=== PATIENT | male | born 1980 | race American Indian/Alaskan Native ===

== ENCOUNTER 2016-07-30 08:11 | Emergency (ER) | payer SELFPAY ==
--- NOTE | 2016-07-30 09:17 | Emergency Department Report ---
Stated Complaint: STOMACH VIRUS Time Seen by Provider: 07/30/16 09:16 - HPI History of Present Illness: Patient here report nausea vomiting and diarrhea since Wednesday. He said he has no nausea vomiting or diarrhea today. He said that he was exposed to cleaning agent at work and he is also having light sensitivity and migraine headache. Denies any nausea vomiting or diarrhea today. Denies any urinary burning frequency or urgency. Denies any abdominal pain. Denies Chest pain or shortness of breath. - ROS Review of Systems: all Systems are negative unless stated in HPI above. - Exam Vital Signs: Vital Signs 07/30/16 09:09 Temperature 98.2 F Pulse Rate 65 Respiratory 18 Rate Blood Pressure 116/74 O2 Sat by Pulse 97 Oximetry Physical Exam: General: This is a 36-year-old male well-nourished well-developed in no acute distress. Abdomen: Non-Tender to palpate in all quadrants no guarding or rebound tenderness. Normal bowel sounds in all quadrants and no CVA tenderness Lungs:Clear to Auscultated bilaterally. Rhonchi wheezes or rales. Normal work of breathing MSE screening note: Focused history and physical exam performed. Due to findings the following was ordered:see mdm ED Medical Decision Making - Medical Decision Making Medical decision making: Patient seen by provider in triage area. Appropriate protocol activated and patient to main ED to be seen by physician. ED Disposition for MSE Condition: Stable
[2016-07-30 09:18] VITALS: BP 116/74
[2016-07-30 09:42] LABS: Basophils % (Auto) 0.5 % (0.0-1.8); Eosinophils % (Auto) 0.5 % (0.0-4.3); Hematocrit 40.3 % (35.5-45.6); Hemoglobin 13.1 gm/dl (11.8-15.2); Mean Corpuscular HGB Conc 33 % (32-34); Mean Corpuscular Hemoglobin 28 pg (28-32); Mean Corpuscular Volume 85 fl (84-94); Platelet Count 143 K/mm3 (140-440); Red Blood Count 4.73 M/mm3 (3.65-5.03); Red Cell Distribution Width 13.1 % (13.2-15.2); White Blood Count 5.1 K/mm3 (4.5-11.0)
[2016-07-30 09:59] LABS: Alanine Aminotransferase 13 units/L (7-56); Albumin 4.5 g/dL (3.9-5); Albumin/Globulin Ratio 1.7 %; Alkaline Phosphatase 54 units/L (35-129); Amylase 52 units/L (27-131); Bilirubin,Total 0.8 mg/dL (0.1-1.2); Blood Urea Nitrogen 10 mg/dL (9-20); Calcium 9.2 mg/dL (8.4-10.2); Carbon Dioxide 30 mmol/L (22-30); Glucose 94 mg/dL (75-100); Lipase 14 units/L (13-60); Total Protein 7.1 g/dL (6.3-8.2)
[2016-07-30 10:00] LABS: Chloride 101.6 mmol/L (98-107); Potassium 4.3 mmol/L (3.6-5.0); Sodium 141 mmol/L (137-145)
[2016-07-30 10:09] LABS: Anion Gap 14 mmol/L; Bilirubin,Direct < 0.2 mg/dL (0-0.2); Bilirubin,Indirect 0.6 mg/dL
[2016-07-30 13:34] LABS: Bilirubin,Urine NEG (Negative); Blood,Urine NEG (Negative); Ketones,Urine NEG (Negative); Leukocyte Esterase,Urine NEG (Negative); Nitrite,Urine NEG (Negative); Protein,Urine <15 mg/dL mg/dL (Negative); Urobilinogen,Urine < 2.0 mg/dL (<2.0); WBC,Urine < 1.0 /HPF (0.0-6.0)
--- NOTE | 2016-07-30 13:43 | Emergency Department Report ---
HPI - General Chief Complaint: Nausea/Vomiting/Diarrhea Time Seen by Provider: 07/30/16 09:16 - HPI HPI: Room 38 The patient is a 36-year-old male presenting with a chief complaint of nausea vomiting diarrhea. The patient states 3 days ago he developed nausea vomiting and diarrhea and headache with his vomiting. Patient states the symptoms had improved so he went back to work yesterday. The patient states at work he had episodes of nausea and vomiting and was sent home. Patient states he felt better today and was going back to work and his boss instructed them to come to the hospital for evaluation. Patient is currently asymptomatic. Patient denies any recent antibiotic use. Patient denies any history of fever. She states his is sick with the same symptoms. Location: Gastrointestinal system, see above Duration: [see above] Quality: Nausea Severity: Moderate Modifying factors: [see above] Context: [see above] Mode of transportation: Unknown ED Past Medical Hx - Past Medical History Previous Medical History?: No - Surgical History Past Surgical History?: Yes Additional Surgical History: right leg surgery - Family History Family history: no significant - Social History Smoking Status: Never Smoker Substance Use Type: None - Medications Home Medications: Home Medications Medication Instructions Recorded Confirmed Last Taken Type Acetaminophen/Codeine [Tylenol #3] 1 tab PO Q6H PRN #20 tab 03/06/15 Unknown Rx Ibuprofen [Motrin 800 MG tab] 800 mg PO Q8HR PRN #30 tablet 03/06/15 Unknown Rx Sulfamethoxazole/Trimethoprim 1 each PO BID #20 tablet 03/06/15 Unknown Rx [Bactrim DS TAB] Ibuprofen [Motrin] 600 mg PO Q8H PRN #40 tablet 05/07/15 Unknown Rx traMADol [Ultram] 50 mg PO Q6HR PRN #20 tablet 05/07/15 Unknown Rx Diphenoxylate/Atropine [Lomotil] 1 tab PO QID PRN #10 tablet 07/30/16 Unknown Rx Promethazine [Phenergan TAB] 25 mg PO Q6HR PRN #20 tab 07/30/16 Unknown Rx Promethazine [Phenergan] 25 mg DC Q6HR PRN #5 supp.rect 07/30/16 Unknown Rx ED Review of Systems ROS: Stated complaint: STOMACH VIRUS Other details as noted in HPI Comment: All other systems reviewed and negative Constitutional: fever. denies: chills Eyes: denies: eye pain, eye discharge, vision change ENT: denies: ear pain, throat pain Respiratory: denies: cough, shortness of breath, wheezing Cardiovascular: denies: chest pain, palpitations Endocrine: no symptoms reported Gastrointestinal: nausea, vomiting, diarrhea. denies: abdominal pain Genitourinary: denies: urgency, dysuria Musculoskeletal: denies: back pain, joint swelling, arthralgia Skin: denies: rash, lesions Neurological: headache. denies: weakness, paresthesias Psychiatric: denies: anxiety, depression Hematological/Lymphatic: denies: easy bleeding, easy bruising Physical Exam - Physical Exam Vital Signs: Vital Signs 07/30/16 07/30/16 09:09 13:14 Temperature 98.2 F Pulse Rate 65 Respiratory 18 20 Rate Blood Pressure 116/74 O2 Sat by Pulse 97 Oximetry Physical Exam: GENERAL: The patient is well-developed well-nourished male lying on stretcher not appearing to be in acute distress. [] HEENT: Normocephalic. Atraumatic. Extraocular motions are intact. Patient has moist mucous membranes. NECK: Supple. No meningitic signs are noted. Trachea midline. No nuchal rigidity CHEST/LUNGS: Clear to auscultation. There is no respiratory distress noted. HEART/CARDIOVASCULAR: Regular. There is no tachycardia. There is no gallop rub or murmur. ABDOMEN: Abdomen is soft, nontender. Patient has normal bowel sounds. There is no abdominal distention. SKIN: There is no rash. There is no edema. There is no diaphoresis. NEURO: The patient is awake, alert, and oriented. The patient is cooperative. The patient has normal speech and gait. MUSCULOSKELETAL: There is no evidence of acute injury. ED Course Vital Signs 07/30/16 07/30/16 09:09 13:14 Temperature 98.2 F Pulse Rate 65 Respiratory 18 20 Rate Blood Pressure 116/74 O2 Sat by Pulse 97 Oximetry ED Medical Decision Making - Lab Data Result diagrams: 07/30/16 09:34 07/30/16 09:34 Laboratory Tests 07/30/16 07/30/16 07/30/16 09:34 09:34 13:21 WBC 5.1 RBC 4.73 Hgb 13.1 Hct 40.3 MCV 85 MCH 28 MCHC 33 RDW 13.1 L Plt Count 143 Lymph % (Auto) 35.1 H Wirt % (Auto) 8.6 H Eos % (Auto) 0.5 Baso % (Auto) 0.5 Lymph # 1.8 Wirt # 0.4 Eos # 0.0 Baso # 0.0 Seg Neutrophils % 55.3 Seg Neutrophils # 2.8 Sodium 141 Potassium 4.3 Chloride 101.6 Carbon Dioxide 30 Anion Gap 14 BUN 10 Creatinine 0.8 Estimated GFR > 60 BUN/Creatinine Ratio 12.50 Glucose 94 Calcium 9.2 Total Bilirubin 0.8 Direct Bilirubin < 0.2 Indirect Bilirubin 0.6 AST 19 ALT 13 Alkaline Phosphatase 54 Total Protein 7.1 Albumin 4.5 Albumin/Globulin Ratio 1.7 Amylase 52 Lipase 14 Urine Color Yellow Urine Turbidity Clear Urine pH 7.0 Ur Specific [place] 1.012 Urine Protein <15 mg/dl Urine Glucose (UA) Neg Urine Ketones Neg Urine Blood Neg Urine Nitrite Neg Urine Bilirubin Neg Urine Urobilinogen < 2.0 Ur Leukocyte Esterase Neg Urine WBC (Auto) < 1.0 Urine RBC (Auto) 3.0 U Epithel Cells (Auto) 1.0 - Differential Diagnosis gastroenteritis Critical care attestation.: If time is entered above; I have spent that time in minutes in the direct care of this critically ill patient, excluding procedure time. ED Disposition Clinical Impression: Acute gastroenteritis Disposition: DISCHARGED TO HOME OR SELFCARE Is pt being admited?: No Does the pt Need Aspirin: No Condition: Stable Instructions: Gastroenteritis (ED) Additional Instructions: Return to the emergency department immediately should you develop worsening symptoms, fever, inability to tolerate food or liquid or any other concerns. Prescriptions: Diphenoxylate/Atropine [Lomotil] 1 tab PO QID PRN #10 tablet PRN Reason: Diarrhea Promethazine [Phenergan TAB] 25 mg PO Q6HR PRN #20 tab PRN Reason: Nausea Promethazine [Phenergan] 25 mg DC Q6HR PRN #5 supp.rect PRN Reason: Vomiting Referrals: PRIMARY CARE, [Primary Care Provider] - 3-5 Days JULIETTE LAZCANO MD [Staff Physician] - 3-5 Days (Dr. Lazcano is a primary physician. Please follow up with him to be established as a patient if you do not have a primary physician.) CAITLYN JO MD [Staff Physician] - 3-5 Days (Dr. Jo is a cotton inspector. Please follow up with him if your symptoms persist) Time of Disposition: 13:48
== END 2016-07-30 14:04 | disposition home or self-care (01) ==
LOC: ED 08:11
DX: K52.9 Noninfective gastroenteritis and colitis, unspecified (principal)
CPT/HCPCS: 36415; 80048; 80074; 81001; 82150; 83690; 85025; 99283

== ENCOUNTER 2016-11-18 09:28 | Emergency (ER) | payer SELFPAY ==
--- NOTE | 2016-11-18 10:20 | XRay Report ---
LEFT KNEE RADIOGRAPHS INDICATION: Left knee injury, pain. Fell last night. COMPARISON: 05/07/2015. FINDINGS: AP, lateral and oblique left knee radiographs again demonstrate normal bony articulation and appearance. Knee soft tissues and a small suprapatellar effusion though slightly more prominent. CONCLUSION: No acute bony abnormality with other findings, as above. Please correlate. Thank you for the opportunity to participate in this patient's care.
[2016-11-18] MEDS ORDERED: NORCO 5/325 PO ONE (11:07)
[2016-11-18] MEDS ORDERED: MOTRIN PO ONE (11:07)
--- NOTE | 2016-11-18 11:18 | Emergency Department Report ---
ED Extremity Problem HPI - General Chief complaint: Extremity Injury, Lower Stated complaint: KNEE PAIN Time Seen by Provider: 11/18/16 10:46 Source: patient Mode of arrival: Ambulatory Limitations: No Limitations - History of Present Illness Initial comments: PT states last night he injured his knee. PT states he was walking down the steps at his mom's house and he missed a step. PT states his body fell to the L and his knee went to the R. PT states he took Motrin last night at midnight and he tried wearing an OTC brace but everytime he takes a step, he feels like his knee is popping out of place. MD Complaint: joint paint -: Sudden Location: left, knee Severity scale (0 -10): 10 (if knee is moving) Quality: sharp Consistency: constant Improves with: rest Worsens with: weight bearing, walking, palpation Associated Symptoms: denies other symptoms (denies other injuries ). denies: chest pain, shortness of breath - Related Data Previous Rx's Medication Instructions Recorded Last Taken Type Acetaminophen/Codeine [Tylenol #3] 1 tab PO Q6H PRN #12 tab 11/18/16 Unknown Rx Ibuprofen [Motrin] 600 mg PO Q8H PRN #15 tablet 11/18/16 Unknown Rx Allergies Allergy/AdvReac Type Severity Reaction Status Date / Time No Known Allergies Allergy Verified 11/18/16 09:35 ED Review of Systems ROS: Stated complaint: KNEE PAIN Other details as noted in HPI Comment: All other systems reviewed and negative Respiratory: denies: shortness of breath Cardiovascular: denies: chest pain Gastrointestinal: denies: abdominal pain Musculoskeletal: as per HPI Skin: other (denies wounds ) Neurological: denies: headache, weakness, confusion ED Past Medical Hx - Past Medical History Previous Medical History?: No - Surgical History Additional Surgical History: right leg surgery - Social History Smoking Status: Never Smoker Substance Use Type: None - Medications Home Medications: Home Medications Medication Instructions Recorded Confirmed Last Taken Type Acetaminophen/Codeine [Tylenol #3] 1 tab PO Q6H PRN #12 tab 11/18/16 Unknown Rx Ibuprofen [Motrin] 600 mg PO Q8H PRN #15 tablet 11/18/16 Unknown Rx ED Physical Exam - General Limitations: No Limitations General appearance: alert, in no apparent distress - Head Head exam: Present: atraumatic, normocephalic, normal inspection - Eye Eye exam: Present: normal appearance, EOMI. Absent: conjunctival injection - ENT ENT exam: Present: normal exam - Neck Neck exam: Present: normal inspection, full ROM. Absent: tenderness - Respiratory Respiratory exam: Present: normal lung sounds bilaterally. Absent: respiratory distress, wheezes - Cardiovascular Cardiovascular Exam: Present: regular rate, normal rhythm, normal heart sounds - GI/Abdominal GI/Abdominal exam: Present: soft. Absent: tenderness - Extremities Exam Extremities exam: Present: normal inspection, tenderness. Absent: full ROM, pedal edema, calf tenderness - Expanded Lower Extremity Exam Left Upper Leg exam: Present: normal inspection Knee exam: Present: normal inspection, tenderness (to medial joint line ), full knee extension. Absent: full ROM (decreased flexion ), abrasion, laceration, ecchymosis, deformity, crepidus, dislocation, erythema Lower Leg exam: Present: normal inspection. Absent: tenderness Gait: Positive: antalgic - Back Exam Back exam: Present: normal inspection, full ROM - Neurological Exam Neurological exam: Present: alert, oriented X3 - Psychiatric Psychiatric exam: Present: normal affect, normal mood - Skin Skin exam: Present: warm, dry, intact, other (with tattoos ) ED Course Vital Signs 11/18/16 11/18/16 09:29 11:21 Temperature 98.2 F 98.2 F Pulse Rate 77 70 Respiratory 17 16 Rate Blood Pressure 132/76 Blood Pressure 110/69 [Left] O2 Sat by Pulse 98 97 Oximetry - Reevaluation(s) Reevaluation #1: 11/18/16 11:21 PT aware of dx and plan of care. Reevaluation #2: 11/18/16 11:47 PT placed in knee immobilizer by RN. PT NVI. - Pulse Oximetry Interpretation Digit-Finger Initial Pulse Oximetry Readin Actions Taken: none ED Medical Decision Making - Radiology Data Radiology results: report reviewed XR L knee- Suprapatellar effusion, no fx - Differential Diagnosis fracture, strain, ligament injury Critical Care Time: No Critical care attestation.: If time is entered above; I have spent that time in minutes in the direct care of this critically ill patient, excluding procedure time. ED Disposition Clinical Impression: Knee effusion, left Left knee injury Qualifiers: Encounter type: initial encounter Qualified Code(s): S89.92XA - Unspecified injury of left lower leg, initial encounter Disposition: DISCHARGED TO HOME OR SELFCARE Is pt being admited?: No Does the pt Need Aspirin: No Condition: Stable Instructions: Knee Sprain (ED), Knee Effusion (ED), Knee Pain (ED), RICE Therapy (ED), Knee Immobilizer (ED) Additional Instructions: No driving or ETOH after Tylenol #3 Prescriptions: Acetaminophen/Codeine [Tylenol #3] 1 tab PO Q6H PRN #12 tab PRN Reason: Pain , Severe (7-10) Ibuprofen [Motrin] 600 mg PO Q8H PRN #15 tablet PRN Reason: Pain Referrals: PRIMARY CAREMD [Primary Care Provider] - 3-5 Days SANDRITA HUTSON MD, PHD [Staff Physician] - 3-5 Days CLARY SILVEIRA MD [Staff Physician] - 3-5 Days Forms: Work/School Release Form(ED) Time of Disposition: 11:24
[2016-11-18 11:23] VITALS: BP 110/69
== END 2016-11-18 12:01 | disposition home or self-care (01) ==
LOC: ED 09:28
DX: S89.92XA Unspecified injury of left lower leg, initial encounter (principal); M25.462 Effusion, left knee; W10.9XXA Fall (on) (from) unspecified stairs and steps, initial encounter; Y93.89 Activity, other specified; Y92.89 Other specified places as the place of occurrence of the external cause; Y99.8 Other external cause status

== ENCOUNTER 2017-11-23 10:18 | Emergency (ER) | payer SELFPAY ==
[2017-11-23 10:49] VITALS: BP 116/80
--- NOTE | 2017-11-23 11:24 | XRay Report ---
LEFT KNEE, 3 views: History: Left knee injury, pain and swelling. The bony architecture is intact without evidence of fracture or dislocation. No significant soft tissue abnormality is seen. IMPRESSION: Unremarkable left knee.
--- NOTE | 2017-11-23 11:38 | Emergency Department Report ---
ED Extremity Problem HPI - General Chief complaint: Extremity Injury, Lower Stated complaint: KNEE INJURY Time Seen by Provider: 11/23/17 11:31 Source: patient Mode of arrival: Ambulatory Limitations: No Limitations - History of Present Illness Initial comments: 37-year-old -[place] male comes in complaining of left knee pain for 2 days. 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 Patient declines any recent traumas. He he reports he took ibuprofen last night that helped about 11:30 went to sleep. Patient also reported he soak in Epsom salts she felt that helped. Patient denies any past medical history currently takes no medications has no known drug allergies. MD Complaint: extremity pain, extremity swelling -: days(s) (2) Location: left, knee History of Same: No -: Yes arthralgia Severity scale (0 -10): 6 - Related Data Previous Rx's Medication Instructions Recorded Last Taken Type Acetaminophen/Codeine [Tylenol #3] 1 tab PO Q6H PRN #12 tab 11/18/16 Unknown Rx Ibuprofen [Motrin 600 MG tab] 600 mg PO Q8H PRN #15 tablet 11/23/17 Unknown Rx Allergies Allergy/AdvReac Type Severity Reaction Status Date / Time No Known Allergies Allergy Verified 11/18/16 09:35 ED Review of Systems ROS: Stated complaint: KNEE INJURY Other details as noted in HPI ED Past Medical Hx - Past Medical History Previous Medical History?: No - Surgical History Past Surgical History?: Yes Additional Surgical History: right leg surgery - Social History Smoking Status: Current Every Day Smoker Substance Use Type: Alcohol - Medications Home Medications: Home Medications Medication Instructions Recorded Confirmed Last Taken Type Acetaminophen/Codeine [Tylenol #3] 1 tab PO Q6H PRN #12 tab 11/18/16 Unknown Rx Ibuprofen [Motrin 600 MG tab] 600 mg PO Q8H PRN #15 tablet 11/23/17 Unknown Rx ED Physical Exam - General Limitations: No Limitations General appearance: alert, in no apparent distress - Head Head exam: Present: atraumatic, normocephalic - Eye Eye exam: Present: normal appearance - ENT ENT exam: Present: mucous membranes moist - Neck Neck exam: Present: normal inspection - Respiratory Respiratory exam: Present: normal lung sounds bilaterally. Absent: respiratory distress - Cardiovascular Cardiovascular Exam: Present: regular rate, normal rhythm. Absent: systolic murmur, diastolic murmur, rubs, gallop - GI/Abdominal GI/Abdominal exam: Present: soft, normal bowel sounds - Rectal Rectal exam: Present: deferred - Extremities Exam Extremities exam: Present: normal inspection - Expanded Lower Extremity Exam Left Hip exam: Present: normal inspection, full ROM Upper Leg exam: Present: normal inspection, full ROM Knee exam: Present: normal inspection, full ROM, tenderness (inferior patella). Absent: swelling, abrasion, ecchymosis, deformity, crepidus, dislocation, erythema, effusion Lower Leg exam: Present: normal inspection, full ROM. Absent: tenderness Ankle exam: Present: normal inspection, full ROM Foot/Toe exam: Present: normal inspection, full ROM - Back Exam Back exam: Present: normal inspection - Neurological Exam Neurological exam: Present: alert, oriented X3 - Psychiatric Psychiatric exam: Present: normal affect, normal mood - Skin Skin exam: Present: warm, dry, intact, normal color. Absent: rash ED Course Vital Signs 11/23/17 10:46 Temperature 98.6 F Pulse Rate 68 Respiratory 20 Rate Blood Pressure 116/80 O2 Sat by Pulse 100 Oximetry ED Medical Decision Making - Radiology Data Radiology results: report reviewed, image reviewed LEFT KNEE, 3 views: History: Left knee injury, pain and swelling. The bony architecture is intact without evidence of fracture or dislocation. No significant soft tissue abnormality is seen. IMPRESSION: Unremarkable left knee. Transcribed By: TTR Dictated By: NATASHA TOMAS JR, MD Electronically Authenticated By: NATASHA TOMAS JR, MD Signed Date/Time: 11/23/17 1115 DD/ 1114 TD/TT: 11/23/17 1115 - Medical Decision Making Patient's been evaluated by this provider fast track. I discussed the patient x -rays are shows unremarkable no fractures or dislocations or any swelling. Discussed patient to continue with ice therapy, recommended a neoprene sleeve for support he can take ibuprofen for pain management. Resting the as much as possible elevate it as much as possible. Patient declined any pain medication at this time. Follow up with her primary care provider if symptoms persist or gets worse. Patient verbalized understanding Critical care attestation.: If time is entered above; I have spent that time in minutes in the direct care of this critically ill patient, excluding procedure time. ED Disposition Clinical Impression: Left knee pain Qualifiers: Chronicity: unspecified Qualified Code(s): M25.562 - Pain in left knee Disposition: - TO HOME OR SELFCARE Is pt being admited?: No Does the pt Need Aspirin: No Condition: Stable Additional Instructions: Please take pain medication as prescribed. I recommend a neoprene knee sleeve to help with support. Apply ice elevate pain medication and follow-up if symptoms persist or gets worse. Prescriptions: Ibuprofen [Motrin 600 MG tab] 600 mg PO Q8H PRN #15 tablet PRN Reason: Pain Referrals: PRIMARY CARE, [Primary Care Provider] - 3-5 Days Forms: Work/School Release Form(ED)
== END 2017-11-23 11:52 | disposition home or self-care (01) ==
LOC: ED 10:18
DX: M25.562 Pain in left knee (principal); F17.200 Nicotine dependence, unspecified, uncomplicated
CPT/HCPCS: 99283

== ENCOUNTER 2019-07-17 12:01 | Emergency (ER) | payer SELFPAY | END 2019-07-17 17:34 | disposition home or self-care (01) | LOC: ED 12:01 ==

== ENCOUNTER 2019-07-21 07:42 | Emergency (ER) | payer SELFPAY ==
[2019-07-21 07:53] VITALS: BP 102/62
--- NOTE | 2019-07-21 11:03 | Emergency Department Report ---
Blank Doc - Documentation Documentation: At 11 AM I proceeded to see the patient to room 32 but the patient was not pres ent. Multiple attempts were made to find the patient to no avail. Patient eloped
[2019-07-21] MEDS ORDERED: ALBUTEROL 2.5 MG/3 ML NEBU IH ONE (12:22)
--- NOTE | 2019-07-21 13:29 | XRay Report ---
CHEST 2 VIEWS INDICATION / CLINICAL INFORMATION: cough, fever. COMPARISON: None available. FINDINGS: SUPPORT DEVICES: None. HEART / MEDIASTINUM: No significant abnormality. LUNGS / PLEURA: Mild hazy parenchymal opacity is seen in the right lower lobe. The left lung is clear . No significant effusion. No pneumothorax. ADDITIONAL FINDINGS: No significant additional findings. IMPRESSION: 1. Mild hazy right lower lobe parenchyma opacity most likely indicates mild infectious or inflammator y process. Signer Name: Andrew Cat MD Signed: 07/21/2019 1:24 PM Workstation Name: [id number]
--- NOTE | 2019-07-21 13:40 | Emergency Department Report ---
- General Chief Complaint: Upper Respiratory Infection Stated Complaint: FLU SX Time Seen by Provider: 07/21/19 10:41 Source: patient Mode of arrival: Ambulatory Limitations: No Limitations - History of Present Illness Initial Comments: This is a pleasant 39-year-old male presents the emergency department with chief complaint a productive cough for the past 2 weeks. Patient reports this started with body aches, sore throat, cough and got slightly better however has increasingly worsened. Patient reports some upper back pain when he takes a deep breath. Patient denies any known past medical history, current medication use or known allergies to medications. Pain is rated as a 4 out of 10 and alleviated when he exhales. Patient denies any history thrombo-embolic disease, recent surgeries, immobilizations or travel. - Related Data Previous Rx's Medication Instructions Recorded Last Taken Type Acetaminophen/Codeine [Tylenol #3] 1 tab PO Q6H PRN #12 tab 11/18/16 Unknown Rx Ibuprofen [Motrin 600 MG tab] 600 mg PO Q8H PRN #15 tablet 11/23/17 Unknown Rx Ondansetron [Zofran Odt] 4 mg PO Q8HR PRN #10 tab.rapdis 07/17/19 Unknown Rx Albuterol Sulfate [Proair 90 mcg IH Q4HR #1 aer.pow.ba 07/21/19 Unknown Rx Respiclick] Azithromycin [Zithromax Z-BETHANY] 250 mg PO QDAY #6 tablet 07/21/19 Unknown Rx methylPREDNISolone [Medrol 4MG 4 mg PO QDAY #1 tab.ds.pk 07/21/19 Unknown Rx DOSEPAK (21 tabs)] Allergies Allergy/AdvReac Type Severity Reaction Status Date / Time No Known Allergies Allergy Verified 11/18/16 09:35 ED Review of Systems ROS: Stated complaint: FLU SX Other details as noted in HPI Comment: All other systems reviewed and negative Constitutional: fever. denies: chills Eyes: denies: eye pain, eye discharge, vision change ENT: throat pain. denies: ear pain Respiratory: cough. denies: shortness of breath, wheezing Cardiovascular: denies: chest pain, palpitations Endocrine: no symptoms reported Gastrointestinal: denies: abdominal pain, nausea, diarrhea Genitourinary: denies: urgency, dysuria Musculoskeletal: myalgia. denies: back pain, joint swelling, arthralgia Skin: denies: rash, lesions Neurological: denies: headache, weakness, paresthesias Psychiatric: denies: anxiety, depression Hematological/Lymphatic: denies: easy bleeding, easy bruising ED Past Medical Hx - Past Medical History Previous Medical History?: No - Surgical History Past Surgical History?: Yes Additional Surgical History: right leg surgery - Family History Family history: no significant - Social History Smoking Status: Current Some Day Smoker Substance Use Type: None - Medications Home Medications: Home Medications Medication Instructions Recorded Confirmed Last Taken Type Acetaminophen/Codeine [Tylenol #3] 1 tab PO Q6H PRN #12 tab 11/18/16 Unknown Rx Ibuprofen [Motrin 600 MG tab] 600 mg PO Q8H PRN #15 tablet 11/23/17 Unknown Rx Ondansetron [Zofran Odt] 4 mg PO Q8HR PRN #10 tab.rapdis 07/17/19 Unknown Rx Albuterol Sulfate [Proair 90 mcg IH Q4HR #1 aer.pow.ba 07/21/19 Unknown Rx Respiclick] Azithromycin [Zithromax Z-BETHANY] 250 mg PO QDAY #6 tablet 07/21/19 Unknown Rx methylPREDNISolone [Medrol 4MG 4 mg PO QDAY #1 tab.ds.pk 07/21/19 Unknown Rx DOSEPAK (21 tabs)] ED Physical Exam - General Limitations: No Limitations General appearance: alert, in no apparent distress - Head Head exam: Present: atraumatic, normocephalic - Eye Eye exam: Present: normal appearance - ENT ENT exam: Present: mucous membranes moist - Neck Neck exam: Present: normal inspection, other (negative Kernig and Brudzinski sign). Absent: tenderness, meningismus - Respiratory Respiratory exam: Present: normal lung sounds bilaterally, other (decreased breath sounds on the right lower lung matos.). Absent: respiratory distress, wheezes, rales, rhonchi, stridor - Cardiovascular Cardiovascular Exam: Present: regular rate, normal rhythm. Absent: systolic murmur, diastolic murmur, rubs, gallop - GI/Abdominal GI/Abdominal exam: Present: soft, normal bowel sounds - Rectal Rectal exam: Present: deferred - Extremities Exam Extremities exam: Present: normal inspection, other (negative Homans sign bilaterally, no posterior calf tenderness.) - Back Exam Back exam: Present: normal inspection - Neurological Exam Neurological exam: Present: alert, oriented X3 - Psychiatric Psychiatric exam: Present: normal affect, normal mood - Skin Skin exam: Present: warm, dry, intact, normal color. Absent: rash ED Course Vital Signs 07/21/19 07/21/19 07:50 12:41 Temperature 98.6 F Pulse Rate 66 Pulse Rate [ 86 Bilateral] Respiratory 18 Rate Respiratory 16 Rate [Bilateral ] Blood Pressure 102/62 Blood Pressure 102/62 [Right] O2 Sat by Pulse 98 Oximetry ED Medical Decision Making - Radiology Data Radiology results: report reviewed, image reviewed XRay Report Signed Patient: TIFFANY DOMINGUEZ MR# : [id number] : 1980 Acct:[id number] Age/Sex: 39 / M ADM Date: 07/21/19 Loc: ED Attending Dr: Ordering Physician: WM CAICEDO Date of Service: 07/21/19 Procedure(s): XR chest routine 2V Accession Number(s): [id number] cc: WM CAICEDO Fluoro Time In Minutes: CHEST 2 VIEWS INDICATION / CLINICAL INFORMATION: cough, fever. COMPARISON: None available. FINDINGS: SUPPORT DEVICES: None. HEART / MEDIASTINUM: No significant abnormality. LUNGS / PLEURA: Mild hazy parenchymal opacity is seen in the right lower lobe. The left lung is clear. No significant effusion. No pneumothorax. ADDITIONAL FINDINGS: No significant additional findings. IMPRESSION: 1. Mild hazy right lower lobe parenchyma opacity most likely indicates mild infectious or inflammatory process. Signer Name: Andrew Cat MD Signed: 07/21/2019 1:24 PM Workstation Name: [id number] Transcribed By: ANDREW Dictated By: Andrew Cat MD Electronically Authenticated By: Andrew Cat MD Signed Date/Time: 07/21/19 13 - Medical Decision Making Patient nontoxic in no acute distress. Vitals are stable. Patient is perk negative and a low risk by well's criteria for PE making this unlikely. Chest x-ray was consistent with a mild right lower lobe pneumonia. Patient will be treated with antibiotics, steroids and albuterol and recommended outpatient follow-up with his primary care doctor. He does not meet SIRS or sepsis criteria. He verbalizes understanding of the diagnosis, treatment plan appalled tractions and all his questions were answered. - Differential Diagnosis pneumonia, PE, bronchitis, influenza Critical care attestation.: If time is entered above; I have spent that time in minutes in the direct care of this critically ill patient, excluding procedure time. ED Disposition Clinical Impression: Community acquired pneumonia Qualifiers: Laterality: right Lung location: lower lobe of lung Qualified Code(s): J18.9 - Pneumonia, unspecified organism Disposition: - TO HOME OR SELFCARE Is pt being admited?: No Condition: Stable Instructions: Bacterial Pneumonia (ED) Prescriptions: methylPREDNISolone [Medrol 4MG DOSEPAK (21 tabs)] 4 mg PO QDAY #1 tab.ds.pk Albuterol Sulfate [Proair Respiclick] 90 mcg IH Q4HR #1 aer.pow.ba Azithromycin [Zithromax Z-BETHANY] 250 mg PO QDAY #6 tablet Referrals: PRIMARY CARE, [Primary Care Provider] - 3-5 Days Forms: Work/School Release Form(ED) Time of Disposition: 13:40
== END 2019-07-21 13:47 | disposition home or self-care (01) ==
LOC: ED 07:42
DX: J18.9 Pneumonia, unspecified organism (principal); F17.200 Nicotine dependence, unspecified, uncomplicated
CPT/HCPCS: 71046; 94640; 94644; 99283

== ENCOUNTER 2019-08-09 18:04 | Emergency (ER) | payer OTHER ==
[2019-08-09 18:10] VITALS: BP 130/84
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
== END 2019-08-09 20:36 | disposition home or self-care (01) ==
LOC: ED 18:04
DX: S39.012A Strain of muscle, fascia and tendon of lower back, initial encounter (principal); S46.812A Strain of other muscles, fascia and tendons at shoulder and upper arm level, left arm, initial encounter; F17.200 Nicotine dependence, unspecified, uncomplicated; V49.49XA Driver injured in collision with other motor vehicles in traffic accident, initial encounter; Y93.89 Activity, other specified; Y92.488 Other paved roadways as the place of occurrence of the external cause; Y99.8 Other external cause status
CPT/HCPCS: 72040; 72100; 99283

== ENCOUNTER 2020-05-14 18:54 | Emergency (ER) | payer SELFPAY ==
[2020-05-14] MEDS ORDERED: DIPHtheria,PERTUSSIS(ACELL),TETANUS VACCINE/PF 0.5 ML VIAL IM ONE ×2 (19:33→23:33)
--- NOTE | 2020-05-14 19:33 | Event Note ---
ED Screening Note Date of service: 05/14/20 Time: 19:32 ED Screening Note: c/o R thumb laceration x today while working on a car unsure of last tdap This initial assessment/diagnostic orders/clinical plan/treatment(s) is/are subject to change based on patients health status, clinical progression and re- assessment by fellow clinical providers in the ED. Further treatment and workup at subsequent clinical providers discretion. Patient/guardian urged not to elope from the ED as their condition may be serious if not clinically assessed and managed. Initial orders include: boostrix sutures in [facility]
[2020-05-14 19:35] VITALS: BP 106/69
--- NOTE | 2020-05-15 00:28 | Emergency Department Report ---
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 No numbness or tingling pain with range of motion. ED Review of Systems ROS: Stated complaint: FINGER LACERATION Other details as noted in HPI Comment: All other systems reviewed and negative ED Past Medical Hx - Past Medical History Previous Medical History?: No - Surgical History Past Surgical History?: No Additional Surgical History: right leg surgery - Social History Smoking Status: Never Smoker - Medications Home Medications: Home Medications Medication Instructions Recorded Confirmed Last Taken Type Acetaminophen/Codeine [Tylenol #3] 1 tab PO Q6H PRN #12 tab 11/18/16 Unknown Rx Ibuprofen [Motrin 600 MG tab] 600 mg PO Q8H PRN #15 tablet 11/23/17 Unknown Rx Ondansetron [Zofran Odt] 4 mg PO Q8HR PRN #10 tab.rapdis 07/17/19 Unknown Rx Albuterol Sulfate [Proair 90 mcg IH Q4HR #1 aer.pow.ba 07/21/19 Unknown Rx Respiclick] Azithromycin [Zithromax Z-BETHANY] 250 mg PO QDAY #6 tablet 07/21/19 Unknown Rx methylPREDNISolone [Medrol 4MG 4 mg PO QDAY #1 tab.ds.pk 07/21/19 Unknown Rx DOSEPAK (21 tabs)] Cyclobenzaprine [Flexeril] 10 mg PO QHS PRN #10 tablet 08/09/19 Unknown Rx Naproxen [EC-Naprosyn] 500 mg PO BID PRN #14 tablet. 08/09/19 Unknown Rx Laceration Physical Exam - Exam General: Vital signs noted. No distress. Alert and acting appropriately. Wound Length (cm): 2 Laceration Location: Upper Extremity Full Body Front + Back: 1 - Manual laceration to the base of the right thumb at 1.5 cm. Laceration Exam: Yes Normal Distal CMS (Capillary refill is brisk pulses 2+ full range of motion of the thumb. No snuffbox tenderness noted.), No Foreign Body, No Exposed Tendon, Vessel, or Nerve, No Tendon Injury ED Course Vital Signs 05/14/20 19:33 Temperature 97.6 F Pulse Rate 65 Respiratory 17 Rate Blood Pressure 106/69 O2 Sat by Pulse 100 Oximetry - Procedure Description Procedures done: Wound prepped and draped in sterile fashion 0 02% ocular nerve XI. 4-0 Prolene was placed in simple noted fashion x3 for wound closure at the base of the right thumb wound is 1.56 cm. No complications and estimated blood loss was less than 2 cc. Critical care attestation.: If time is entered above; I have spent that time in minutes in the direct care of this critically ill patient, excluding procedure time. ED Disposition Clinical Impression: Laceration of hand Disposition: DC-01 TO HOME OR SELFCARE Is pt being admited?: No Does the pt Need Aspirin: No Condition: Stable Instructions: Laceration (ED), Suture Care (ED) Additional Instructions: Please follow-up for evaluation for possible suture removal in 7 to 10 days Referrals: [facility] [Provider Group] - 7-10 days PRIMARY CARE, [Primary Care Provider] - 7-10 days
== END 2020-05-15 00:15 | disposition home or self-care (01) ==
LOC: ED 18:54
DX: S61.411A Laceration without foreign body of right hand, initial encounter (principal); Z98.890 Other specified postprocedural states; Z79.899 Other long term (current) drug therapy; W01.0XXA Fall on same level from slipping, tripping and stumbling without subsequent striking against object, initial encounter; Y93.89 Activity, other specified; Y92.89 Other specified places as the place of occurrence of the external cause; Y99.8 Other external cause status
CPT/HCPCS: 90471; 90715